=== PATIENT | female | born 1925 | race Caucasian/White ===

== ENCOUNTER 2016-07-31 07:38 | Day surgery (SDC) | payer OTHER ==
[~2016-07-31] VITALS: Ht 160 cm; Wt 64.8 kg
[2016-07-31] VITALS (7 sets, daily range): BP systolic 141–157; BP diastolic 75–82; PULSE 64–85; RESP 18; TEMP 97.6–98.4; O2SAT 91–96
[~2016-07-31 07:38] MED LIST: CALCCHW25 CHEW; LEXA5TAB PO; LORA-373 PO; METO25TA3 PO; PRAV40TA2 PO; VERA120T3 PO; WARF4TAB51 PO
[2016-07-31] MEDS ORDERED: diphenhydrAMINE HCL 50 MG CAP PO SCH (08:30)
[2016-07-31] MEDS: NS 1000P @30 MLS/HR (KVO) IV SCH (08:30)
[2016-07-31 08:50] LABS: BASOPHIL # 0.1 TH/MM3 (0-0.2); BASOPHIL % 0.7 % (0.0-2.0); EOSINOPHIL # 0.1 TH/MM3 (0-0.4); EOSINOPHIL % 1.4 % (0.0-4.0); HEMATOCRIT 40.6 % (35.0-46.0); HEMO FLAGS DIFF FINAL; LYMPH % 23.9 % (9.0-44.0); LYMPHOCYTE # 2.1 TH/MM3 (1.0-4.8); MEAN CELL VOLUME 87.4 FL (80.0-100.0); MEAN CORPUSCULAR HEMOGLOBIN 29.1 PG (27.0-34.0); MEAN CORPUSCULAR HGB CONC 33.4 % (32.0-36.0); MONO % 6.8 % (0.0-8.0); NEUT % 67.2 % (16.0-70.0); PLATELET COUNT 315 TH/MM3 (150-450); RED BLOOD COUNT 4.64 MIL/MM3 (4.00-5.30); RED CELL DISTRIBUTION WIDTH 16.1 % (11.6-17.2); WHITE BLOOD COUNT 8.9 TH/MM3 (4.0-11.0)
[2016-07-31 08:59] LABS: APTT (PATIENT) 26.3 SEC (24.3-30.1); INTERNATIONAL NORMALIZED RATIO 1.1 RATIO; PROTHROMBIN TIME - PATIENT 11.8 SEC (9.8-11.6)
[2016-07-31 09:01] LABS: POTASSIUM 3.7 MEQ/L (3.5-5.1)
[2016-07-31] MEDS ORDERED: HEPARIN-NS/PF INJ 500 ML ONE (09:26)
[2016-07-31] MEDS ORDERED: MIDAZOLAM HCL 2 MG/2 ML VIAL ONE (09:29)
[2016-07-31] MEDS ORDERED: IOHEXOL 350 MG/ML 50 ML BTL (for Cath Lab) OTHER ONE (10:15)
[2016-07-31] MEDS ORDERED: ONDANSETRON HCL 4 MG/2 ML VIAL IV PRN (10:30)
[2016-07-31] MEDS ORDERED: ATROPINE SULFATE 1 MG/ML VIAL IV PRN (10:30)
[2016-07-31] MEDS ORDERED: MISC INFORMATION XX ONE (10:30)
[2016-07-31] MEDS ORDERED: SODIUM CHLORIDE 0.9% FLUSH 5 ML FLUSH IVF PRN (10:30)
--- NOTE | 2016-07-31 10:53 | MA ---
cc: MONISHACRESCENCIO Camacho DATE 07/31/2016 DATE OF 1925 PROCEDURE PERFORMED 1. Left heart catheterization 2. Right heart catheterization INDICATIONS Severe symptomatic aortic stenosis, preoperative evaluation. DESCRIPTION OF PROCEDURE Consent signed. The patient was brought into the cardiac prosthetic lab technician in a fasting state. The right groin was prepped and draped in a sterile fashion. Using 1% lidocaine for local anesthesia and a micropuncture kit, a 5-Beninese sheath was inserted into the right common femoral artery and a 7 Beninese into the right common femoral vein. Then a 6Fr Swanz eliseo was flooted into wedge followed by hemodynamic recording the right heart, as well as getting blood samples to calculate cardiac outputs. Then selective coronary angiography on the right coronary and the left coronary artery with a JL-5 and a JR-4 diagnostic catheters. Then selective angiographic views were taken of both coronary arteries. The left ventricle was not crossed given known severe aortic stenosis. The patient tolerated the procedure well without complications. Estimated blood loss less than 40 cc. The groin access site was were closed with manual pressure. COMPLICATIONS None ANGIOGRAPHIC RESULTS HEMODYNAMICS Aortic pressure 144/64 with a mean of 97, wedge pressure 23/23 with a mean of 18 , main pulmonary artery 56/20 with a mean of 36. Right ventricle 57/90 with a mean of 13. Right atrial pressure at 13/13 with a mean of 11. The cardiac output calculation was 4 and the cardiac index calculation was 1.4. ANGIOGRAPHY 1. The right coronary artery is a dominant vessel. It is tortuous and it has JOSEPH-III flow and nonobstructive coronary artery disease. 2. The left main is short and patent with nonobstructive coronary artery disease and JOSEPH-III flow. 3. The LAD is patent with JOSEPH-III flow. It has distal minimal luminal irregularities and is a transapical vessel. It has a prominent D1 which bifurcates which is open with nonobstructive coronary artery disease. 4. The left circumflex is patent with nonobstructive CAD, JOSEPH-III flow of OM1 and OM2 which are patent and tortuous. The right SFA has mild calcifications. CONCLUSION 1. Normal coronary arteries. 2. Severe symptomatic aortic stenosis. RECOMMENDATIONS Continue TAVR versus AVR workup. CT surgery consult PFT's MD MARTHA Banuelos/GIFTY /10:29 AM /10:44 AM [facility]
--- NOTE | 2016-07-31 14:19 | MB ---
cc: UZMA GRACE MD DATE OF CONSULTATION 07/31/2016 REASON FOR CONSULTATION The patient is an 89 year-old female patient of Dr. Pickering, Dr. Mario Nam, Dr. Teetee [facility] primary care with a history of aortic stenosis, atrial fibrillation, who apparently presented to the office with progressive dyspnea, worsening with exertion for the past couple of weeks, shortness of breath occurs now with minimal exertion. No chest pain. No syncope. No paroxysmal nocturnal dyspnea. No orthopnea. She had had an echocardiogram back in June which showed a mean gradient of 30 mmHg. A new echo is being done today, the report is not ready, however, we were consulted to evaluate for aortic valve replacement versus evaluation for transcatheter aortic valve replacement at [facility] in [place]. PAST MEDICAL HISTORY The patient's past medical history significant for: 1. Aortic stenosis 2. Atrial fibrillation and she has been on long-term Coumadin. 3. She had history of left breast cancer with partial Mastectomy. 4. Essential hypertension 5. Hyperlipidemia 6. Mitral valve disease. 7. She has a Medtronic pacer in situ. 8. She has had a history of carotid artery disease. 9. She has had a history of a TIA. PAST SURGICAL HISTORY Include: 1. Cholecystectomy 2. Heart catheterization 3. She has also had a replacement of her Medtronic pacer device back in March 2011. 4. She did have bilateral breast implants following the mass partial mastectomy. ALLERGIES INCLUDE SULFA HOME MEDICATIONS Include: 1. Verapamil 120 mg p.o. daily 2. Pravachol 40 p.o. daily 3. Coumadin 2 mg p.o. daily. Last dose was on the . 4. Metoprolol 12.5 p.o. b.i.d. 5. Lexapro 5 mg p.o. daily 6. Lorazepam 0.5 p.o. p.r.n. for sleep REVIEW OF SYSTEMS GENERAL: No night sweats, fever, heat and cold intolerance. SKIN: No psoriasis, itching or hives. HEENT: No blurred vision or hearing loss. RESPIRATORY: Positive for shortness of breath with minimal exertion. CARDIOVASCULAR: No chest pain. No paroxysmal nocturnal dyspnea. No lower extremity edema. GASTROINTESTINAL: No diarrhea or vomiting. GENITOURINARY: No burning, frequency or urgency. PUBLIC HEALTH INSPECTOR: Positive for history of TIA in the past. ENDOCRINOLOGY: No hypothyroidism or diabetes mellitus. PHYSICAL EXAM On exam, blood pressure 150/70, heart rate of 70. She is B-paced. The patient is awake and alert in no acute distress. Appears younger than her stated age. HEAD: Normocephalic, atraumatic. EYES: Pupils are equal and reactive. EARS, NOSE, AND THROAT: Oral mucosa pink and moist. NECK: Supple. No JVD. HEART: S1-S2 regular rate and rhythm, grader 3/6 systolic murmur best noted at the right sternal border. LUNGS: Clear to auscultation. No wheezes, rales or rhonchi. ABDOMEN: Soft and nontender. No masses or organomegaly. EXTREMITIES: No cyanosis, clubbing or edema. LABORATORY FINDINGS Shows hemoglobin of 13, hematocrit of 40, white cell count 8.9, platelet count 315. Sodium 142, potassium 3.7, BUN of 13, creatinine 0.83, INR 1.1. EKG shows 100% V-paced. Cardiac cath reveals no evidence of coronary disease. She did have a CTA of the abdomen and thorax back in June 2016 which showed no evidence of aortic dissection or aneurysm. There was a 1 cm right upper lobe lung nodules, some small effusions. IMPRESSION This is very pleasant 89-year-old female with severe aortic stenosis. At this time due to her advanced age, recommendation is for evaluation as an outpatient by [facility] in [place] for transcatheter aortic valve replacement, pulmonary function testing, a frailty scale and STS data pending. We will arrange per the office for an outpatient follow up. Dictated by DILLON Camarena Uzma ROSS /12:54 PM /2:19 PM
[2016-07-31] MEDS: SODIUM CHLORIDE 0.9% FLUSH 5 ML FLUSH IVF SCH (21:00)
--- NOTE | 2016-07-31 21:01 | EC ---
Study Study Date:07/31/2016 STUDY CONCLUSIONS SUMMARY - Left ventricle: The cavity size was normal. Wall thickness was increased in a pattern of mild LVH. There was concentric hypertrophy. Systolic function was vigorous. The estimated ejection fraction was in the range of 70% to 75%. Wall motion was normal; there were no regional wall motion abnormalities. Doppler parameters are consistent with a reversible restrictive pattern, indicative of decreased left ventricular diastolic compliance and/or increased left atrial pressure (grade 3 diastolic dysfunction). - Aortic valve: There was severe stenosis. Valve area: 0.33cm^2(VTI). Valve area: 0.35cm^2 (Vmax). - Mitral valve: Severely calcified annulus. The findings are consistent with mild stenosis. Mild regurgitation. Valve area by pressure half-time: 2.02cm^2. Valve area by continuity equation (using LVOT flow): 0.68cm^2. - Right ventricle: Systolic function was mildly reduced. - Tricuspid valve: Moderate-severe regurgitation. - Pulmonary arteries: PA peak pressure: 58mm Hg (S). If LV function is below 40, please consider prescribing an ACEI or ARB or document rationale for non-use. PROCEDURE DATA STUDY STATUS: Elective. Procedure: Transthoracic echocardiography. Image quality was good. Scanning was performed from the parasternal, apical, and subcostal acoustic windows. Study completion: The patient tolerated the procedure well. Transthoracic echocardiography. M-mode, complete 2D, complete spectral Doppler, and color Doppler. Height: Height: 63in. Weight: Weight: 137.7lb. Body mass index: BMI: 24.4kg/m^2. Body surface area: BSA: 1.65m^2. Patient status: Inpatient. CARDIAC ANATOMY LEFT VENTRICLE: The cavity size was normal. Wall thickness was increased in a pattern of mild LVH. There was concentric hypertrophy. Systolic function was vigorous. The estimated ejection fraction was in the range of 70% to 75%. Wall motion was normal; there were no regional wall motion abnormalities. Doppler parameters are consistent with a reversible restrictive pattern, indicative of decreased left ventricular diastolic compliance and/or increased left atrial pressure (grade 3 diastolic dysfunction). AORTIC VALVE: Severely calcified leaflets. Doppler: There was severe stenosis. No significant regurgitation. Valve area: 0.33cm^2(VTI). Indexed valve area: 0.2cm^2/m^2 (VTI). Valve area: 0.35cm^2 (Vmax). Indexed valve area: 0.21cm^2/m^2 (Vmax). Mean gradient: 38mm Hg (S). Peak gradient: 63mm Hg (S). MITRAL VALVE: Severely calcified annulus. Doppler: The findings are consistent with mild stenosis. Mild regurgitation. Valve area by pressure half-time: 2.02cm^2. Indexed valve area by pressure half-time: 1.22cm^2/m^2. Valve area by continuity equation (using LVOT flow): 0.68cm^2. Indexed valve area by continuity equation (using LVOT flow): 0.41cm^2/m^2. Mean gradient: 4mm Hg (D). Peak gradient: 13mm Hg (D). RIGHT VENTRICLE: The cavity size was normal. Pacer wire or catheter noted in right ventricle. Systolic function was mildly reduced. PULMONIC VALVE: Not well visualized. Doppler: Trace regurgitation. TRICUSPID VALVE: The valve appears to be grossly normal. Doppler: There was no evidence for stenosis. Moderate-severe regurgitation. PERICARDIUM: There was no pericardial effusion. Patient weight: 137.7lb _Ejection fraction:_ 65-75% _Fractional shortening:_ 32% up to 5Kg 5-11.5Kg 11.6-22.9Kg 23-45Kg 45-57Kg Aortic Root 7-13 <17 13-22 17-27 17-27 LA diam 6-13 <23 24-38 33-47 37-40 RVID 10-17 7-15 7-15 7-18 8-17 LVIDd 12-22 <32 24-38 33-47 37-40 LVPW 2-4 3-6 5-7 6-8 7-8 IVS 2-4 3-6 5-7 6-8 7-8 BASIC MEASUREMENTS ADULT NORMAL Left ventricle LV internal dimension, ED, chordal *32.7 mm 43-52 level, PLAX LV internal dimension, ES, chordal *21.4 mm 23-38 level, PLAX Fractional shortening, chordal level, 35 % >29 PLAX LV posterior wall thickness, ED 12.1 mm IVS/LVPW ratio, ED 0.99 <1.3 Ventricular septum Septal thickness, ED 12 mm Aorta Root diameter, ED 27 mm Left atrium Anterior-posterior dimension 30 mm Anterior-posterior dimension index 1.82 cm/m^2 <2.2 DOPPLER MEASUREMENTS ADULT NORMAL Main pulmonary artery Pressure, S *58 mm Hg =30 Aortic valve Peak velocity, S 397 cm/s Mean velocity, S 290 cm/s VTI, S 48.8 cm Mean gradient, S 38 mm Hg Peak gradient, S 63 mm Hg Valve area, VTI 0.33 cm^2 Valve area index, VTI 0.2 cm^2/m^2 Valve area, Vmax 0.35 cm^2 Valve area index, Vmax 0.21 cm^2/m^2 Mitral valve Peak E-wave velocity 167 cm/s Peak A-wave velocity 61 cm/s Mean velocity, D 89 cm/s Deceleration time *254 ms 150-230 Pressure half-time 109 ms Mean gradient, D 4 mm Hg Peak gradient, D 13 mm Hg Peak E/A ratio 2.7 Valve area, pressure half-time 2.02 cm^2 Valve area index, pressure half-time 1.22 cm^2/m^2 Valve area, LVOT continuity 0.68 cm^2 Valve area index, LVOT continuity 0.41 cm^2/m^2 Tricuspid valve Regurgitant peak velocity 349 cm/s Peak RV-RA gradient, S 49 mm Hg Maximal regurgitant velocity 349 cm/s Systemic veins Estimated CVP 10 mm Hg Right ventricle RV pressure, S *59 mm Hg <30 Pulmonic valve Peak velocity, S 41.4 cm/s LEGEND: Mean values are shown as u=mean value. Asterisk (*) mcneil values outside specified normal range. Prepared and signed by Andre Silva [id number]
[2016-07-31] MEDS ORDERED: diphenhydrAMINE HCL 25 MG CAP PO ONE (23:30)
[2016-08-01] VITALS (9 sets, daily range): BP systolic 127–151; BP diastolic 72–83; PULSE 61–79; RESP 16; TEMP 97.9–98; O2SAT 92–100
[2016-08-01] MEDS: NS 1000P @30 MLS/HR (KVO) IV SCH (08:02)
[2016-08-01] MEDS: SODIUM CHLORIDE 0.9% FLUSH 5 ML FLUSH IVF SCH (08:03)
[2016-08-01] MEDS ORDERED: OXYGENTANK NAS.CANULA (08:41)
--- NOTE | 2016-08-01 12:08 | HHI.DS ---
Discharge Summary Admission Date 07/31/2016 Discharge Date: Aug 01, 2016 Admitting Diagnosis Aortic Stenosis (1) Hypoxia Diagnosis: Secondary (2) Aortic stenosis, severe Diagnosis: Principal (3) Restrictive lung disease Diagnosis: Secondary Procedures Left Heart Catheterization Right Heart Catheterization 2D echocardiogram Pulmonary Function Test Brief History 89 y/o F with severe symptomatic aortic stenosis presenting for TAVR work up. She has NYHA III at baseline. PMHx significant for Afib, lung disease, HTN CBC/BMP: 07/31/16 0820 07/31/16 0820 Significant Findings Laboratory Tests Test 07/31/16 08:20 Prothrombin Time 11.8 SEC (9.8-11.6) Estimat Glomerular Filtration 65 ML/MIN (>89) Rate PE at Discharge GENERAL: Well-nourished, well-developed patient. SKIN: Warm and dry. HEAD: Normocephalic. EYES: No scleral icterus. No injection or drainage. NECK: Supple, trachea midline. No JVD or lymphadenopathy. CARDIOVASCULAR:irr Irr 3/6 NICKI murmurs, gallops, or rubs. RESPIRATORY: Breath sounds equal bilaterally. No accessory muscle use. GASTROINTESTINAL: Abdomen soft, non-tender, nondistended. EXTREMITIES: No cyanosis, or edema. NEUROLOGICAL: Awake, alert, and oriented x 3. Non-focal. Hospital Course She underwent successful LHC and RHC without complications TAVR workup: 1. LHC: nonobstructive CAD 2. Echo: Normal LV systolic function EF 60% 3. PFT's: Moderate restrictive pulmonary disease 4. CT surgery consult: High risk for AVR given age and comorbidities per Dr. Elizabeth 5. STS: 8.5% 6. Frailty: Not frail Pt Condition on Discharge: Good Discharge Disposition: Discharge Home Discharge Instructions DIET: Follow Instructions for: As Tolerated, No Restrictions, Heart Healthy Diet Speech Therapy-Diet Recommenda: Regular Activities you can perform: Regular-No Restrictions New Medications: Oxygen tank (Oxygen tank) 1 Ea Tank 2 LITER CYNDI.CANULA CONTINUOUS Oxygen Concentrator Portable Gaseous 2 L/min via Nasal Cannula Continuous For 99 months HYPOXEMIA PREVENTION #1 CYLINDER Continued Medications: Escitalopram (Lexapro) 5 Mg Tab 3 MG PO DAILY #30 Ref 0 TAB Lorazepam (Lorazepam) 0.5 Mg Tab 0.5 MG PO BID PRN SLEEP Ref 0 TAB Metoprolol Tartrate (Metoprolol Tartrate) 25 Mg Tab 12.5 MG PO BID #60 Ref 0 TAB Pravastatin (Pravastatin) 40 Mg Tab 40 MG PO DAILY Cholesterol Management #30 Ref 0 TAB Verapamil (Verapamil) 120 Mg Tab 240 MG PO DAILY #60 Ref 0 TAB Warfarin (Warfarin) 2 Mg Tab 2 MG PO DAILY Blood Clot Prevention #30 Ref 0 TAB Additional Information Patient will be referred to [facility] for TAVR Mario Urbina MD Aug 01, 2016 12:08
--- NOTE | 2016-08-01 12:11 | PD.CARD.PN ---
Subjective Subjective Remarks no complaints O2 sats better this AM, 90 on ambulation Objective Medications Current Medications Medications (Trade) Dose Ordered Sig/Torie Route Start Time Stop Time Status Last Admin (NS 1000 ml Inj) 1,000 ml @ 30 mls/hr Q24H IV 07/31/16 08:30 08/01/16 08:02 (NS Flush) 2 ml BID IVF 07/31/16 10:30 07/31/16 21:00 (NS Flush) 2 ml UNSCH PRN IVF 07/31/16 10:30 (Atropine Inj) 0.5 mg UNSCH PRN IV 07/31/16 10:30 (Zofran Inj) 4 mg Q4H PRN IV 07/31/16 10:30 Vital Signs / I&O Vital Signs Date Time Temp Pulse Resp B/P Pulse Ox O2 Delivery O2 Flow Rate FiO2 08/01/16 07:00 97.9 75 16 145/83 92 08/01/16 07:00 68 08/01/16 05:00 61 08/01/16 04:00 64 08/01/16 03:59 75 151/78 96 08/01/16 03:00 64 08/01/16 02:00 63 08/01/16 01:00 62 08/01/16 00:00 62 07/31/16 23:00 97.6 64 141/75 96 07/31/16 23:00 64 07/31/16 22:00 68 07/31/16 21:00 85 07/31/16 20:00 83 07/31/16 19:00 97.8 66 157/82 93 07/31/16 19:00 66 07/31/16 18:14 95 Nasal Cannula 4.00 I/O 07/31/16 07/31/16 07/31/16 08/01/16 08/01/16 08/01/16 07:00 15:00 23:00 07:00 15:00 23:00 Intake Total 480 ml 240 ml Balance 480 ml 240 ml Intake Oral 480 ml 240 ml # Voids 2 Physical Exam GENERAL: Well-nourished, well-developed patient. SKIN: Warm and dry. HEAD: Normocephalic. EYES: No scleral icterus. No injection or drainage. NECK: Supple, trachea midline. No JVD or lymphadenopathy. CARDIOVASCULAR:Irr Irr 3/6 NICKI, gallops, or rubs. RESPIRATORY: Breath sounds equal bilaterally. No accessory muscle use. GASTROINTESTINAL: Abdomen soft, non-tender, nondistended. EXTREMITIES: No cyanosis, or edema. NEUROLOGICAL: Awake, alert, and oriented x 3. Non-focal. Assessment and Plan Problem List: (1) Aortic stenosis, severe Assessment and Plan: Stable to d/c home form CV stand point Continue current medication therapy (2) Hypoxia (3) Restrictive lung disease Mario Urbina MD Aug 01, 2016 12:11
--- NOTE | 2016-08-19 12:15 | RSPPFT ---
DATE OF PROCEDURE: 07/31/16 COMMENTS: Spirometry demonstrates an FEV1 of 0.7 at 54% of predicted, FVC of 1.1 at 54%, FEF 25-75 is 43% of predicted. Post-bronchodilator study was not conducted. Flow volume loops are suggestive of an obstructive pattern. IMPRESSION: 1. Moderate obstructive disease. 2. Additional moderate to severe restrictive disease.
== END 2016-08-01 12:50 | disposition home or self-care (01) ==
LOC: HDIC 07:38 → HDOC 07:38 → HCIS 21:00 → HDOC 08-01 12:50
PROVIDERS: ATTEND Radiology Vascular & Interventional Radiology
DX: I35.0 Nonrheumatic aortic (valve) stenosis (principal); R09.02 Hypoxemia; J98.4 Other disorders of lung; Z79.01 Long term (current) use of anticoagulants; I48.91 Unspecified atrial fibrillation; I10 Essential (primary) hypertension; E78.5 Hyperlipidemia, unspecified; I25.10 Atherosclerotic heart disease of native coronary artery without angina pectoris
CPT/HCPCS: 80048; 82040; 82810; 85025; 85610; 85730; 93306; 93456; 94010; 94620; 97166; C1769; C1893; G8987; G8988; G8989; J1644; J2250; J3010; J7030; Q9967

== ENCOUNTER → 2016-08-26 | Outpatient (CLI) | payer OTHER ==
[~2016-08-26] MED LIST changes: -CALCCHW25 CHEW; +OXYGENTANK NAS.CANULA
--- NOTE | 2016-08-28 08:47 | RSPPFT ---
DATE OF PROCEDURE: 08/26/16 COMMENTS: VOLUMES DYNAMIC: FVC and FEV1 normal. FLOWS: FEV1% mildly reduced; FEF 25-75 moderately reduced. IMPRESSION: Mild to moderate obstructive ventilatory defect.
== END ==
LOC: HRSP 10:31
PROVIDERS: ATTEND Internal Medicine
DX: R06.02 Shortness of breath (principal)
CPT/HCPCS: 94010; 94620